=== PATIENT | female | born 1995 ===

== ENCOUNTER 2016-09-26 13:53 | Outpatient (CLI) | payer BC, MEDICAID ==
[~2016-09-26] VITALS: Ht 165.1 cm; Wt 71.4 kg
[~2016-09-26 13:53] MED LIST: MOTRIN 800800 MG/TAB PO; PERCOCET 325 MG1 TA2 PO; PRENATAL MVI
[2016-09-26 14:03] VITALS: BP 118/73; PULSE 112; TEMP 98.9
[2016-09-26] MEDS ORDERED: IRON325 MG PO (14:03)
[2016-09-26 15:05] VITALS: BP 114/70; PULSE 89
== END 2016-09-26 15:15 | disposition home or self-care (01) ==
LOC: LDRO 13:53
DX: Z34.83 Encounter for supervision of other normal pregnancy, third trimester (principal); Z3A.39 39 weeks gestation of pregnancy

== ENCOUNTER 2016-09-27 09:27 | Inpatient (IN) | payer BC, MEDICAID ==
[~2016-09-27] VITALS: Ht 165.1 cm; Wt 71.4 kg
[2016-09-27] VITALS (44 sets, daily range): BP systolic 99–141; BP diastolic 57–81; PULSE 73–108; TEMP 98.1–98.6
[~2016-09-27 09:27] MED LIST changes: +IRON325 MG PO
[2016-09-27 10:38] LABS: BASO # 0.1 (0.0-0.2); BASO % 0.7 % (0.0-2.0); EOS # 0.1 (0.0-0.7); GRAN # 4.2 (1.4-6.5); GRAN % 61.7 % (42.2-75.2); HEMATOCRIT 32.3 % (35.0-45.0); HEMOGLOBIN 9.7 g/dl (12.0-15.0); LYMPH # 1.9 (1.2-3.4); LYMPH % 27.5 % (20.0-51.0); MEAN CELL VOLUME 81 fl (80.0-95.0); MEAN CORPUSCULAR HEMOGLOBIN 24 pg (26.0-32.0); MEAN CORPUSCULAR HGB CONC 30 g/dl (33.0-37.0); MEAN PLATELET VOLUME 10.5 fl (7.4-10.4); MONO # 0.6 (0.1-0.6); MONO % 8.7 % (1.7-9.3); PLATELET COUNT 257 K/mm3 (130-400); RED BLOOD COUNT 3.99 M/mm3 (4.10-5.30); REDCELL DISTRIBUTION WIDTH-CV 14.7 % (11.5-14.5); WHITE BLOOD COUNT 6.9 K/mm3 (4.8-10.8)
[2016-09-28] VITALS (10 sets, daily range): BP systolic 104–119; BP diastolic 61–77; PULSE 74–92; TEMP 97.8–98.5
[2016-09-28 07:33] LABS: BASO % 0.3 % (0.0-2.0); EOS # 0.1 (0.0-0.7); GRAN # 6.8 (1.4-6.5); GRAN % 68.1 % (42.2-75.2); LYMPH # 2.1 (1.2-3.4); LYMPH % 20.5 % (20.0-51.0); MEAN CELL VOLUME 81 fl (80.0-95.0); MEAN CORPUSCULAR HGB CONC 30 g/dl (33.0-37.0); MEAN PLATELET VOLUME 10.4 fl (7.4-10.4); MONO % 9.7 % (1.7-9.3); PLATELET COUNT 197 K/mm3 (130-400); RED BLOOD COUNT 3.43 M/mm3 (4.10-5.30); REDCELL DISTRIBUTION WIDTH-CV 14.8 % (11.5-14.5)
[2016-09-28 07:35] LABS: HEMATOCRIT 27.6 % (35.0-45.0); HEMOGLOBIN 8.3 g/dl (12.0-15.0); MEAN CORPUSCULAR HEMOGLOBIN 24 pg (26.0-32.0)
[2016-09-28] MEDS ORDERED: IBU800 M1 PO (09:04)
[2016-09-28] MEDS ORDERED: PERCOCET 325 MG1 TA2 PO (09:04)
[2016-09-29 06:50] VITALS: BP 108/62; PULSE 74; TEMP 97.7
[2016-09-29 16:57] VITALS: BP 98/54; PULSE 79; TEMP 97.7
== END 2016-09-29 18:33 | disposition home or self-care (01) | DRG 775 ==
LOC: LDRO 09:27 → LDR 10:03 → OB 10:03
PROVIDERS: Obstetrics & Gynecology
PROC: 10E0XZZ Delivery of Products of Conception, External Approach (ICD-10-PCS; principal; 2016-09-27)
DX: O42.02 Full-term premature rupture of membranes, onset of labor within 24 hours of rupture (principal); O34.211 Maternal care for low transverse scar from previous cesarean delivery; N85.8 Other specified noninflammatory disorders of uterus; O99.824 Streptococcus B carrier state complicating childbirth; O69.81X0 Labor and delivery complicated by cord around neck, without compression, not applicable or unspecified; O99.02 Anemia complicating childbirth; D64.9 Anemia, unspecified; Z3A.39 39 weeks gestation of pregnancy; Z37.0 Single live birth
CPT/HCPCS: J2210; J2540; J2590; J2795; J7120